=== PATIENT | male | born 1960 | race Caucasian/White ===

== ENCOUNTER 2017-01-14 02:17 | Emergency (ER) | payer OTHER ==
[~2017-01-14] VITALS: Ht 177.8 cm; Wt 88.0 kg
[~2017-01-14 02:17] MED LIST: BENA20TA48 PO; CETI10CA PO; FINA5TAB4 PO; HYD25 PO; MECL-77 PO; SIMV40TA2 PO; TAMS-14 PO
[2017-01-14 02:21] VITALS: Ht 177.8 cm; Wt 88.0 kg
--- NOTE | 2017-01-14 03:17 | ERA ---
ER Documentation Chief Complaint Date/Time DATE: 01/14/17 TIME: 03:17 Chief Complaint hypertension, headache, hx-htn taking bp meds HPI The patient is a 56-year-old male, presenting to the ER because of elevated blood pressure 180/95 about 1 AM when he cannot sleep. He has a lot of stress in his life, complains of palpitations intermittently, has similar symptoms previously. He denies facial pain, neck pain, chest pain, dyspnea, abdominal pain, vomiting with dysuria, diarrhea. He does not smoke, drink or use illicit drug Past medical history: Hypertension, BPH, dyslipidemia Past surgical history: None ROS All systems reviewed and are negative except as per history of present illness. Medications Home Meds Active Scripts Meclizine Hcl* (Meclizine Hcl*) 25 Mg Tablet, 25 MG PO Q8H Y for DIZZINESS for 10 Days, TAB Prov:OWEN SMITHSTEPHANI KUMAR 08/02/16 Reported Medications Hydrochlorothiazide* (Hydrochlorothiazide*) 25 Mg Tab, 25 MG PO DAILY, #30 TAB 08/02/16 Simvastatin* (Zocor*) 40 Mg Tablet, 40 MG PO QHS, #30 TAB 08/02/16 Benazepril Hcl* (Benazepril Hcl*) 20 Mg Tablet, 20 MG PO DAILY, #30 TAB 08/02/16 Finasteride* (Finasteride*) 5 Mg Tablet, 5 MG PO DAILY, TAB 08/02/16 Tamsulosin Hcl* (Flomax*) 0.4 Mg Cap.er.24h, 0.4 MG PO DAILY, CAP 08/02/16 Cetirizine Hcl* (Zyrtec*) 10 Mg Capsule, 10 MG PO DAILY, TAB 08/02/16 Allergies Allergies: Coded Allergies: No Known Allergy (Verified , 08/02/16) PMhx/Soc History of Surgery: No Anesthesia Reaction: No Hx Neurological Disorder: No Hx Respiratory Disorders: No Hx Cardiac Disorders: Yes (HYPERTENSION) Hx Psychiatric Problems: No Hx Miscellaneous Medical Probl: No Hx Alcohol Use: Yes (socailly) Hx Substance Use: No Hx Tobacco Use: No Physical Exam Vitals Vital Signs Date Time Temp Pulse Resp B/P Pulse Ox O2 Delivery O2 Flow Rate FiO2 01/14/17 05:25 75 16 158/96 98 Room Air 01/14/17 04:03 78 14 144/90 98 01/14/17 03:20 111 19 173/106 99 01/14/17 02:21 97.8 121 20 176/105 98 Physical Exam Const: No acute distress. Head: Atraumatic. Eyes: Normal Conjunctiva. ENT: Normal External Ears, Nose and Mouth. Neck: Full range of motion. No meningismus. Resp: Clear to auscultation bilaterally. Cardio: Regular rate and rhythm, no murmurs. Abd: Soft, non distended, normal bowel sounds, non tender. Skin: No petechiae or rashes. Back: No midline or flank tenderness. Ext: No cyanosis, or edema. Neur: Awake and alert. No focal deficit Psych: Normal Mood and Affect. Result Diagram: 01/14/1732901/14/17 033 Results 24 hrs Laboratory Tests Test 01/14/17 03:30 White Blood Count 8.410^3/ul Red Blood Count 5.8810^6/ul Hemoglobin 18.4g/dl Hematocrit 52.7% Mean Corpuscular Volume 89.6fl Mean Corpuscular Hemoglobin 31.3pg Mean Corpuscular Hemoglobin Concent 34.9g/dl Red Cell Distribution Width 12.1% Platelet Count 78475^3/UL Mean Platelet Volume 10.6fl Neutrophils % 77.0% Lymphocytes % 14.4% Monocytes % 6.9% Eosinophils % 0.7% Basophils % 0.5% Nucleated Red Blood Cells % 0.0/100WBC Neutrophils # 6.510^3/ul Lymphocytes # 1.210^3/ul Monocytes # 0.610^3/ul Eosinophils # 0.110^3/ul Basophils # 0.010^3/ul Nucleated Red Blood Cells # 0.010^3/ul Prothrombin Time 13.6Sec Prothrombin Time Ratio 1.1 INR International Normalized Ratio 1.04 Activated Partial Thromboplast Time 32.6Sec Sodium Level 142mmol/L Potassium Level 3.3mmol/L Chloride Level 102mmol/L Carbon Dioxide Level 26mmol/L Anion Gap 17 Blood Urea Nitrogen 16mg/dl Creatinine 0.75mg/dl Glucose Level 135mg/dl Calcium Level 9.2mg/dl Troponin I 0.015ng/ml Current Medications Medications (Trade) Dose Ordered Sig/Clyde Route PRN Reason Start Time Stop Time Status Last Admin Dose Admin Labetalol HCl (Labetalol) 20 mg ONCE ONCE IV 01/14/17 03:30 01/14/17 03:31 DC 01/14/17 03:37 Potassium Chloride (Klor-Con 20) 40 meq ONCE STAT PO 01/14/17 05:21 01/14/17 05:22 DC 01/14/17 05:31 Acetaminophen/ Hydrocodone Bitart ([place] (5/325)) 1 tab ONCE ONCE PO 01/14/17 06:00 01/14/17 06:01 DC 01/14/17 05:40 Procedures/MDM MEDICAL MAKING DECISION: The patient is a 56-year-old male, presenting with acute accelerated hypertension, acute hypokalemia, acute stress. He was treated with labetalol 20 mg IV for acute accelerated hypertension, potassium chloride 40 mEq p.o. with good response. The differential diagnoses considered include but are not limited to subarachnoid hemorrhage, occult trauma, CVA, meningitis, encephalitis, hypertension, tension, migraine, cluster, narcotic withdrawal, cervical spine disease. Departure Diagnosis: Primary Impression: Accelerated hypertension Additional Impressions: Hypokalemia Stress Condition: Good Comments I discussed the findings with the patient. I advised the patient to follow-up with the primary physician in about 1-2 days, sooner if needed and return if any concern. KENYA DANIELS MD Jan 14, 2017 03:17
[2017-01-14] MEDS ORDERED: LABETALOL HCL 20MG INJ IV ONE (03:30)
[2017-01-14 03:50] LABS: ADD SCAN DIFF NO
[2017-01-14 04:03] LABS: POTASSIUM 3.3 mmol/L (3.5-5.1)
[2017-01-14 04:04] LABS: INR 1.04; PROTIME 13.6 Sec (12.2-14.2); PT RATIO 1.1
[2017-01-14 04:05] LABS: CREATININE 0.75 mg/dl (0.61-1.24); PARTIAL THROMBOPLASTIN TIME 32.6 Sec (25.0-35.0)
[2017-01-14 04:06] LABS: CALCIUM 9.2 mg/dl (8.4-10.2)
[2017-01-14 04:08] LABS: BASOPHILS % 0.5 % (0.0-2.0); EOSINOPHILS # 0.1 10^3/ul (0.0-0.5); EOSINOPHILS % 0.7 % (0.0-7.0); HEMATOCRIT 52.7 % (42.0-52.0); HEMOGLOBIN 18.4 g/dl (14.0-18.0); LYMPHOCYTES # 1.2 10^3/ul (0.8-2.9); LYMPHOCYTES % 14.4 % (15.0-51.0); MEAN CORPUSCULAR HEMOGLOBIN 31.3 pg (29.0-33.0); MEAN CORPUSCULAR HGB CONC 34.9 g/dl (32.0-37.0); MEAN CORPUSCULAR VOLUME 89.6 fl (82.0-101.0); MEAN PLATELET VOLUME 10.6 fl (7.4-10.4); MONOCYTE # 0.6 10^3/ul (0.3-0.9); MONOCYTES % 6.9 % (0.0-11.0); NEUTROPHIL # 6.5 10^3/ul (1.6-7.5); PLATELET COUNT 157 10^3/UL (140-415); RED BLOOD COUNT 5.88 10^6/ul (4.70-6.10); RED CELL DISTRIBUTION WIDTH 12.1 % (11.5-14.5); WHITE BLOOD COUNT 8.4 10^3/ul (4.8-10.8)
[2017-01-14 04:18] LABS: TROPONIN-I 0.015 ng/ml (0.00-0.12)
[2017-01-14] MEDS ORDERED: POTASSIUM CHLORIDE (SR) 20 MEQ TAB PO STA (05:21)
[2017-01-14 05:25] VITALS: BP 158/96; PULSE 75; RESP 16
[2017-01-14] MEDS ORDERED: HYDROCODONE/APAP (5/325) TAB PO ONE (06:00)
== END 2017-01-14 05:49 | disposition home or self-care (01) ==
LOC: E/R 02:17
DX: I10 Essential (primary) hypertension (principal); E87.6 Hypokalemia; F43.9 Reaction to severe stress, unspecified; R07.9 Chest pain, unspecified
CPT/HCPCS: 36415; 80048; 84484; 85025; 85610; 85730; 93005; 96374; Z7502; Z7610

== ENCOUNTER 2019-01-18 15:08 | Emergency (ER) | payer OTHER ==
[~2019-01-18] VITALS: Wt 89.1 kg
[~2019-01-18 15:08] MED LIST changes: +BENA20TA4 PO; -BENA20TA48 PO; -HYD25 PO; +HYDR25TA6 PO
[2019-01-18] MEDS ORDERED: NIFEdipine 10 MG CAP PO ONE (18:00)
[2019-01-18 20:14] VITALS: BP 141/81; PULSE 98; RESP 16
--- NOTE | 2019-01-19 21:20 | ERD ---
ER Documentation Chief Complaint Chief Complaint l. middle finger pain rad from wrist s/p slip and fall, just took bp med HPI 58-year-old male patient with a past medical history of hypertension presents to the ED complaining of a left third middle finger pain as he actually slipped and fell onto his left hand. Reports that he did take his blood pressure medication, 3 hours prior to arrival. Denies any head or neck injuries. Reports that he does not have any pain. Denies any chest pain, shortness of breath, nausea, vomiting, diarrhea, flank pain, hematuria, dizziness, headache. ROS All systems reviewed and are negative except as per history of present illness. Medications Home Meds Active Scripts Meclizine Hcl* (Meclizine Hcl*) 25 Mg Tablet, 25 MG PO Q8H PRN for DIZZINESS for 10 Days, TAB Prov:JEWELL SMITH DO 08/02/16 Reported Medications Hydrochlorothiazide* (Hydrochlorothiazide*) 25 Mg Tab, 25 MG PO DAILY, #30 TAB 08/02/16 Simvastatin* (Zocor*) 40 Mg Tablet, 40 MG PO QHS, #30 TAB 08/02/16 Benazepril Hcl* (Benazepril Hcl*) 20 Mg Tablet, 20 MG PO DAILY, #30 TAB 08/02/16 Finasteride* (Finasteride*) 5 Mg Tablet, 5 MG PO DAILY, TAB 08/02/16 Tamsulosin Hcl* (Flomax*) 0.4 Mg Cap.er.24h, 0.4 MG PO DAILY, CAP 08/02/16 Cetirizine Hcl* (Zyrtec*) 10 Mg Capsule, 10 MG PO DAILY, TAB 08/02/16 Allergies Allergies: Coded Allergies: No Known Allergy (Verified , 08/02/16) PMhx/Soc Medical and Surgical Hx: pt denies Surgical Hx History of Surgery: No Anesthesia Reaction: No Hx Neurological Disorder: No Hx Respiratory Disorders: No Hx Cardiac Disorders: Yes (HYPERTENSION) Hx Psychiatric Problems: No Hx Miscellaneous Medical Probl: No Hx Alcohol Use: Yes (SOCIALLY) Hx Substance Use: No Hx Tobacco Use: No Smoking Status: Never smoker FmHx Family History: No diabetes, No coronary disease Physical Exam Vitals Vital Signs Date Temp Pulse Resp B/P (MAP) Pulse Ox O2 O2 Flow FiO2 Time Delivery Rate 01/18/19 98 16 141/81 96 Room Air 20:14 (101) 01/18/19 99.5 117 20 138/80 95 Room Air 19:02 (99) 01/18/19 199/99 18:00 (132) 01/18/19 99.5 114 20 189/92 97 15:12 (124) Physical Exam Const: [id number], well-nourished. In no acute distress. Head: Atraumatic, normocephalic Eyes: Normal Conjunctiva without injection ENT: Normal external ear, nose and mouth. Neck: Full range of motion. No meningismus. Resp: Clear to auscultation bilaterally. No wheezing, rhonchi, rales, or crackles. No accessory muscle use. No retractions. Cardio: Regular rate and rhythm, no murmurs Skin: No petechiae or rashes Back: No midline tenderness. No CVA tenderness. Ext: No cyanosis, or edema. Cap refill less than 2 seconds. Distal pulses intact bilaterally. Distal phalanx in hyperflexed position consistent with trigger finger. No erythema, edema, purulent discharge, fluctuance or induration. Neur: Awake and alert. Normal gait and coordination. Muscle strength 5/5. Sensation intact bilaterally. Psych: Normal Mood and Affect Results 24 hrs Current Medications Medications Dose Sig/Clyde Start Time Status Last (Trade) Ordered Route PRN Stop Time Admin Dose Reason Admin Nifedipine 20 mg ONCE ONCE 01/18/19 DC 01/18/19 (Procardia) PO 18:00 18:01 01/18/19 18:01 Procedures/MDM 58-year-old male patient with a past medical history of hypertension presents to the ED complaining of left middle finger injury. Patient is afebrile and nontoxic-appearing. Patient does have a blood pressure noted to be 189/92. Recheck of blood pressure upon discharge was 199/99. Discussed with my supervising physician Dr. Wolfe, we decided to give patient nifedipine 20 mg which did downtrend patient's temperature. Patient was observed for few hours prior to discharge. Patient was signed out to Dr. Wolfe for management of blood pressure, blood pressure was 141/81. Patient reports that he feels better, there is low suspicion for end organ damage. IMPRESSION: 1. No acute fracture or dislocation. 2. Third DIP joint remains in flexion on oblique and lateral views, please correlate with exam findings. Patient is placed in a metal splint of left third finger supporting the DIP. Splint Assessment: Neurovascularly intact pre and post splint placement with good fit. Trigger finger noted. Patient's extremity symptoms have stabilized while they have been evaluated in the department and are appropriate for outpatient follow up. No evidence of fractures, dislocations, compartment syndrome, neurologic injury, vascular injury, open joint, open fracture, tendon laceration, septic arthritis, osteomyelitis, DVT, foreign body, or other emergent conditions. Diagnosis: Finger Injury, Hand Injury Follow up with primary care physician in 1-2 days for management of hypertension as well as a hand clinic for his left middle finger injury. Instructed patient to return to the ED sooner for any worsening symptoms. Patient's questions were answered. Patient is hemodynamically stable. Patient understood and agreed with discharge plan. Patient discharged stable. Disclaimer: Inadvertent spelling and grammatical errors are likely due to EHR/dictation software use and do not reflect on the overall quality of patient care. Also, please note that the electronic time recorded on this note does not necessarily reflect the actual time of the patient encounter. Departure Diagnosis: Primary Impression: Finger injury Encounter type: initial encounter Laterality: left Qualified Codes: S69.92XA - Unspecified injury of left wrist, hand and finger(s), initial encounter Additional Impression: Hand injury Encounter type: initial encounter Laterality: left Qualified Codes: S69.92XA - Unspecified injury of left wrist, hand and finger(s), initial encounter Patient Instructions: What Is Trigger Finger?, Sprain Hand Referrals: [facility] () Usted se brown hecho un examen mdico de control que le indica que no est en johnny condicin que requiera tratamiento urgente en el Departamento de Emergencia. Un estudio ms profundo y el tratamiento de carrion condicin pueden esperar sin ningn riesgo hasta que usted sea atendida/o en el consultorio de carrion mdico o johnny clnica. Es responsabilidad suya arreglar johnny samira para el seguimiento del kurtis. MANEJO DE CONDICIONES NO URGENTES EN EL FUTURO 1) Si usted tiene un mdico de atencin primaria: Usted debera llamar a carrion mdico de atencin primaria antes de venir al departamento de emergencia. Despus de las horas de consultorio, carrion doctor o carrion asociado/a est disponible por telfono. El mdico o enfermero de marita en el servicio telefnico puede asesorarle por rakan medio para atender el problema, o kurtis contrario se puede programar johnny samira. 2) Si usted no tiene un mdico de atencin primaria: Llame al mdico o clnica de referencia que aparece abajo monserrat las horas de consultorio para hacer johnny samira para que le vean. CLINICAS: [facility] [phone] [facility] [phone] [facility] [phone] [facility] [phone] [facility] [phone] [address] [facility]. [phone] [address] [facility]. [facility] () Usxavier se brown hecho un examen mdico de control que le indica que no est en johnny condicin que requiera tratamiento urgente en el Departamento de Emergencia. Un estudio ms profundo y el tratamiento de carrion condicin pueden esperar sin ningn riesgo hasta que ted sea atendida/o en el consultorio de carrion mdico o johnny clnica. Es responsabilidad suya arreglar johnny samira para el seguimiento del kurtis. MANEJO DE CONDICIONES NO URGENTES EN EL FUTURO 1) Si usted tiene un mdico de atencin primaria: Usted debera llamar a carrion mdico de atencin primaria antes de venir al departamento de emergencia. Despus de las horas de consultorio, carrion doctor o carrion asociado/a est disponible por telfono. El mdico o enfermero de marita en el servicio telefnico puede asesorarle por rakan medio para atender el problema, o kurtis contrario se puede programar johnny samira. 2) Si usted no tiene un mdico de atencin primaria: Llame al mdico o condado institucions de referencia que aparece abajo monserrat las horas de consultorio para hacer johnny samira para que le vean. SI USTED NO PUEDE PAGAR PARA OSCAR UN MEDICO puede ir a: [facility] [address] [place] [address] [facility] [address] [place] [address] [facility] [address] [place] [address] [facility] [address] [place] [address] [facility] 7 a.m.- 11 p.m. Every Day of the Week NO APPOINTMENT OR AUTHORIZATION NEEDED [facility] Hours: Mon-Fri 9:00 AM - 5:00 PM Additional Instructions: Llame al doctor makenna johnny SAMIRA PARA DENTRO DE 2-3 MCGUIRE.Dgale a la secretaria que nosotros le instruimos hacer esta samira.Avise o llame si carrion condicin se empeora antes de la samira. Regresa aqui si peor o no mejor. SIMONE TAYLOR PA-C Jan 19, 2019 21:20
== END 2019-01-18 20:51 | disposition home or self-care (01) ==
LOC: FTE 15:08
DX: S69.92XA Unspecified injury of left wrist, hand and finger(s), initial encounter (principal); I10 Essential (primary) hypertension; W01.0XXA Fall on same level from slipping, tripping and stumbling without subsequent striking against object, initial encounter; Y92.9 Unspecified place or not applicable
CPT/HCPCS: 29130; 73130; Z7610